=== PATIENT | male | born 1960 | race Caucasian/White ===

== ENCOUNTER 2024-10-08 16:32 | Emergency (ER) | payer BC ==
[~2024-10-08] VITALS: Ht 182.8 cm; Wt 118.8 kg
[2024-10-08] MEDS ORDERED: VENT7GM INH (17:29)
[2024-10-08] MEDS ORDERED: BENZONATATE100 M1 PO (17:29)
[2024-10-08] MEDS ORDERED: AMOX-CLAV 875-1 EACH PO (18:58)
== END 2024-10-08 17:31 | disposition home or self-care (01) ==
LOC: ED 16:32
DX: B34.9 Viral infection, unspecified (principal); Z20.822 Contact with and (suspected) exposure to COVID-19